=== PATIENT | female | born 1985 | race Caucasian/White ===

== ENCOUNTER 2017-09-01 15:54 | Emergency (ER) | payer OTHER ==
[~2017-09-01] VITALS: Ht 175.3 cm; Wt 74.8 kg
[2017-09-01 16:39] LABS: Urine WBC None Seen /hpf (0 - 5)
[2017-09-01 16:44] LABS: Eosinophils # (auto) 0.1 uL; Monocytes # (auto) 0.4 uL; White Blood Cell 7.3 10^3/uL (4.4-10.8)
[2017-09-01 16:46] LABS: Basophils # (auto) 0 uL; Basophils % (auto) 0.7 % (0.0-2.0); Hematocrit 34.9 % (36.0-46.0); Lymphocytes # (auto) 2.3 uL; Lymphocytes % (auto) 31.2 % (10.0-50.0); Mean Corpuscular Hemoglobin 23.1 pg (28.0-32.0); Mean Corpuscular Hgb Conc. 31.5 g/dL (32.0-36.0); Mean Corpuscular Volume 73.5 fL (80.0-100.0); Neutrophils # (auto) 4.4 uL; Neutrophils % (auto) 60.1 % (37.0-80.0); Platelet Count (auto) 567 10^3/uL (140-450); Red Blood Cells 4.75 10^6/uL (4.0-5.20); Red Cell Distribution Width 16.3 % (11.8-14.3)
[2017-09-01 16:49] LABS: Urine Bacteria NONE SEEN /hpf (None Seen); Urine Blood 2+ /uL (Negative); Urine Specific Gravity 1.008 (1.001-1.035)
[2017-09-01 17:05] LABS: Albumin 4.1 g/dL (3.4-5.0); BUN/Creatinine Ratio 7.1; Calcium 8.6 mg/dL (8.5-10.1); Potassium 3.5 mmol/L (3.5-5.1)
[2017-09-01 17:08] LABS: Bilirubin, Total 0.3 mg/dL (0.2-1.0)
[2017-09-01 23:49] VITALS: BP 139/85
== END 2017-09-02 02:50 | disposition home or self-care (01) ==
LOC: ER 16:04
DX: K59.00 Constipation, unspecified (principal)
CPT/HCPCS: 36415; 74176; 80053; 81001; 81025; 85025

== ENCOUNTER 2020-03-09 02:08 | Emergency (ER) | payer OTHER ==
[~2020-03-09] VITALS: Ht 172.7 cm; Wt 79.8 kg
[2020-03-09 02:25] VITALS: BP 130/82
[2020-03-09] MEDS ORDERED: LIDOCAINE 1% HCL (LOCAL ANESTH.) INJ 20ML MDV ONE (03:08)
[2020-03-09] MEDS ORDERED: TETANUS-DIPTH-ACEL PERTUSSIS 0.5ML SYR Tdap IM ONE (03:15)
[2020-03-09] MEDS ORDERED: cefTRIAXone SOD 1,000 MG VL IM ONE (03:15)
== END 2020-03-09 03:28 | disposition home or self-care (01) ==
LOC: ER 02:09
DX: L03.311 Cellulitis of abdominal wall (principal)
CPT/HCPCS: 90471; 90715; 96372; 99284; J0696; J2001

== ENCOUNTER 2020-12-06 17:51 | Emergency (ER) | payer OTHER ==
[~2020-12-06] VITALS: Ht 172.7 cm; Wt 63.5 kg
[2020-12-06 18:40] VITALS: BP 132/84
== END 2020-12-06 20:31 | disposition home or self-care (01) ==
LOC: ER 17:51
DX: J01.90 Acute sinusitis, unspecified (principal); Z86.2 Personal history of diseases of the blood and blood-forming organs and certain disorders involving the immune mechanism